=== PATIENT | male | born 1960 | race Caucasian/White ===

== ENCOUNTER → 2017-04-23 | Day surgery (SDC) | payer OTHER ==
[~2017-04-23] VITALS: Ht 180.3 cm; Wt 98.4 kg
[~2017-04-23] MED LIST: 0.9% Sodium Chloride 1,000 ML IV SCH; PRAV20TA2 PO; Sodium Chloride LOK Flush 10 mL Syringe IV PRN; fentaNYL-PF 50 mCg/mL 2 mL Inj IVPUSH PRN
[2017-04-23 12:07] VITALS: BP 131/80; PULSE 76; RESP 16; O2SAT 94
[2017-04-23 14:57] VITALS: BP 138/79; PULSE 77; RESP 12; O2SAT 94
[2017-04-23 15:07] VITALS: BP 132/78; PULSE 73; RESP 16; O2SAT 96
[2017-04-23 15:17] VITALS: BP 133/71; PULSE 75; RESP 16; O2SAT 96
--- NOTE | 2017-04-23 15:30 | ENDO ---
[address] [address] ENDOSCOPY PROCEDURE PATIENT: LEVI ALEXANDER : 1960 MR#: [id number] ADMIT: 04/23/2017 JOB ID: [id number] DATE OF SERVICE: 04/23/2017 PROCEDURE PERFORMED: Colonoscopy. INDICATIONS: Patient with personal history of colon polyps. ASA CLASSIFICATION: The patient's ASA classification is II. MALLAMPATI SCORE: Mallampati score was 2. MEDICATIONS: 1. Versed 11 mg. 2. Fentanyl 100 mcg. INSTRUMENT USED: PCF-H180AL. PREPARATION QUALITY: Fair. PROCEDURE DETAILS: After informed consent was obtained, the patient was brought into the GI suite, where he was placed on oxygen via nasal cannula and monitored with continuous pulse oximeter, telemetry, and blood pressure monitoring. A time-out was performed. Then, he was placed in the left lateral decubitus position and medications were administered for sedation. Digital rectal exam was performed which revealed what appeared to be a soft nodule that was quite mobile that measured approximately 6-7 mm in the distal rectum on the anterior posterior wall. The colonoscope was then inserted into the rectum and advanced under direct visualization to the cecum, which was identified by the presence of the ileocecal valve and appendiceal orifice. Once the cecum was reached, the colonoscope was withdrawn back into the rectum, as the mucosa and lumen were examined. In the rectum, retroflexion was performed. Following retroflexion, remaining air in the rectum was suctioned, and procedure was completed. FINDINGS: On retroflexed views there was a submucosal lesion that measured approximately 6-7 mm that was appreciated on retroflexion. This was probed with a biopsy forceps and appeared to be soft in consistency. IMPRESSION: Submucosal lesion in the distal rectum. RECOMMENDATIONS: EUS to further evaluate. COMPLICATIONS: None. ESTIMATED BLOOD LOSS: Zero.
== END | disposition home or self-care (01) ==
LOC: END 00:06
PROVIDERS: ATTEND Internal Medicine Gastroenterology
DX: Z12.11 Encounter for screening for malignant neoplasm of colon (principal); Z86.010 Personal history of colon polyps; K62.9 Disease of anus and rectum, unspecified; E11.9 Type 2 diabetes mellitus without complications; R03.0 Elevated blood-pressure reading, without diagnosis of hypertension; E78.5 Hyperlipidemia, unspecified; Z87.891 Personal history of nicotine dependence
CPT/HCPCS: G0105; G0500; J2250; J3010; J7030

== ENCOUNTER → 2017-05-28 | Day surgery (SDC) | payer OTHER ==
[~2017-05-28] VITALS: Ht 180.3 cm; Wt 99.8 kg
[~2017-05-28] MED LIST changes: +0.9% Sodium Chloride 1,000 ML IV PRN; -0.9% Sodium Chloride 1,000 ML IV SCH
[2017-05-28 11:47] VITALS: BP 127/85; PULSE 62; RESP 14; O2SAT 96
[2017-05-28 13:07] VITALS: BP 134/79; PULSE 59; RESP 14; O2SAT 94
[2017-05-28 13:17] VITALS: BP 142/85; PULSE 76; RESP 16; O2SAT 96
--- NOTE | 2017-05-28 16:19 | ENDO ---
[address] [address] ENDOSCOPY PROCEDURE PATIENT: LEVI ALEXANDER : 1960 MR#: [id number] ADMIT: 05/28/2017 JOB ID: [id number] PROCEDURE: Rectal endoscopic ultrasound. INDICATION: Submucosal lesion in the distal rectum appreciated by palpation. The patient's ASA classification is II. Mallampati score is II. INSTRUMENT USED: GIF-H180J, as well as a [id number] radial echo endoscope. SEDATION: Please see nurse's notes for details regarding sedation. PROCEDURE DETAILS: After informed consent was obtained, the patient was brought into the GI suite, where he was placed on oxygen via nasal cannula and monitored with continuous pulse oximeter, telemetry, and blood pressure monitoring. A time-out was performed. Then, he was placed in a left lateral decubitus position and medications were administered for sedation. A digital rectal exam was performed, and I was able to palpate what today felt like a soft, mobile submucosal lesion that measured approximately 5-7 mm. The standard upper endoscope was introduced into the rectum. No obvious submucosal lesion identified. Retroflexion was performed which was unremarkable. The standard upper endoscope was then removed and the radial echo endoscope was then introduced into the rectum. Radial echo endoscopic imaging demonstrated no submucosal lesions that I appreciated. IMPRESSION: Normal rectal endoscopic ultrasound exam. RECOMMENDATIONS: Follow up in GI clinic. COMPLICATIONS: None. ESTIMATED BLOOD LOSS: Zero.
== END | disposition home or self-care (01) ==
LOC: END 00:43
PROVIDERS: ATTEND Internal Medicine Gastroenterology
DX: K62.89 Other specified diseases of anus and rectum (principal); E11.9 Type 2 diabetes mellitus without complications; E78.5 Hyperlipidemia, unspecified; E66.9 Obesity, unspecified; Z68.31 Body mass index [BMI] 31.0-31.9, adult; Z87.891 Personal history of nicotine dependence
CPT/HCPCS: 45341; J2250; J3010; J7030